=== PATIENT | female | born 1985 | race Caucasian/White ===

== ENCOUNTER 2023-09-11 06:47 | Inpatient (IN) | payer OTHER ==
[2023-09-11] MEDS ORDERED: Misoprostol 200 MCG TAB PR PRN (07:54)
[2023-09-11] MEDS ORDERED: Methylergonovine 0.2 MG/ML VIAL IM PRN (07:54)
[2023-09-11] MEDS ORDERED: Ibuprofen 800 MG TAB PO PRN (07:54)
[2023-09-11] MEDS ORDERED: Ondansetron PF 4 MG/2 ML Vial IVP PRN ×2 (07:54→10:19)
[2023-09-11] MEDS ORDERED: hydrALAZINE 20 MG/ML VIAL SLOW IVP PRN ×2 (07:54→20:38)
[2023-09-11] MEDS ORDERED: Tranexamic Acid 1,000 MG/10 ML VIAL IVP PRN (07:54)
[2023-09-11] MEDS ORDERED: Penicillin G Potassium 5 MILL.UNITS in Sodium Chloride 0.9% 100 ML IVPB SCH (07:54)
[2023-09-11] MEDS ORDERED: Acetaminophen 500 MG TAB PO PRN (07:54)
[2023-09-11] MEDS ORDERED: Carboprost 250 MCG/ML AMP IM PRN (07:54)
[2023-09-11] MEDS ORDERED: Diphenoxylate HCl/Atropine Tablet PO PRN ×2 (07:54)
[2023-09-11] MEDS ORDERED: Lidocaine 1% (PF) 30 ML VIAL SC PRN (07:54)
[2023-09-11] MEDS ORDERED: Oxytocin 30 units/NS 500 ML 500 ML IV SCH ×2 (07:54)
[2023-09-11] MEDS ORDERED: HYDROcodone/Acetaminophen 5/325 mg Tablet PO PRN ×2 (07:54)
[2023-09-11] MEDS ORDERED: Promethazine HCl 25 MG/ML VIAL IM PRN ×2 (07:54→10:19)
[2023-09-11] MEDS ORDERED: fentaNYL 50 mcg/mL 1 mL Vial SLOW IVP PRN (07:54)
[2023-09-11] MEDS ORDERED: Oxytocin 30 units/NS 500 ML 500 ML ONE (08:28)
[2023-09-11] MEDS ORDERED: Penicillin G Potassium 5 MILL.UNITS VIAL ONE (08:30)
[2023-09-11 09:01] LABS: Hematocrit 39.2 % (34.9-44.5); Hemoglobin 12.7 g/dL (12.0-15.5); Mean Corpuscular HGB CONC 32.4 g/dL (32.0-36.0); Mean Corpuscular Hemoglobin 29.7 pg (27.0-33.0); Mean Corpuscular Volume 91.8 fl (81.6-98.3); Mean Platelet Volume 10.3 fl (7.4-10.4); Platelet Count 221 10x3/uL (150-450); RBC Distribution Width 13.8 % (11.5-14.5); Red Blood Cell (RBC) Count 4.27 10x6/uL (3.90-5.03); White Blood Cell (WBC) Count 8.8 10x3/uL (3.5-10.5)
[2023-09-11 09:04] VITALS: BMI 36.0
[2023-09-11] MEDS ORDERED: fentaNYL/Ropivacaine Epidural 100 ML ONE (10:11)
[2023-09-11] MEDS ORDERED: diphenhydrAMINE 50 MG/ML VIAL IVP PRN (10:19)
[2023-09-11] MEDS ORDERED: Naloxone HCl 0.4 mg/ml Vial IVP PRN ×2 (10:19)
[2023-09-11] MEDS ORDERED: Acetaminophen 325 MG TAB PO PRN (10:19)
[2023-09-11] MEDS ORDERED: Moisturizing Cream (Eucerin) 113 GM JAR TOP PRN (10:19)
[2023-09-11] MEDS ORDERED: Lactated Ringer's 500 ML IV PRN (10:19)
[2023-09-11] MEDS ORDERED: ePHEDrine Sulfate 50 MG/10 ML VIAL SLOW IVP PRN (10:19)
[2023-09-11] MEDS ORDERED: Communication Order-Pharmacy FS SCH (10:30)
[2023-09-11] MEDS ORDERED: fentaNYL 2 mcg/Ropivacaine 0.2% Epidural 100 ML CADD EPIDURAL SCH (10:30)
[2023-09-11 11:21] LABS: Syphilis Antibody Nonreactive (Nonreactive); Syphilis Antibody Index 0.04 S/CO (<1.00 Non-Reactive)
[2023-09-11 11:23] LABS: HBSAg Index 0.11 S/CO (0-0.99); Hep B Surf Ag - L&D Non-Reactive S/CO (NonReactive)
[2023-09-11] MEDS: Penicillin G 2.5 MILL.units 2.5 MILL.UNITS in Premix Bag 1 BAG IVPB SCH ×3 (14:08→18:17)
[2023-09-11] MEDS: Lactated Ringer's 1,000 ML IV SCH (14:09)
[2023-09-11] MEDS ORDERED: Calcium Carbonate 500 MG ChewTAB PO SCH (16:00)
[2023-09-11] MEDS ORDERED: fentaNYL 50 mcg/mL 1 mL Vial ONE (19:14)
[2023-09-11] MEDS ORDERED: Misoprostol 200 MCG TAB VAG PRN (20:38)
[2023-09-11] MEDS ORDERED: Lanolin Ointment 7 GM TUBE TOP PRN (20:38)
[2023-09-11] MEDS ORDERED: Benzocaine-Menthol 82.5 ML CAN TOP PRN (20:38)
[2023-09-11] MEDS ORDERED: Boostrix 0.5 ML (Tdap) VIAL (>/=7 yrs of age) IM ONE (20:38)
[2023-09-11] MEDS ORDERED: Milk Of Magnesia 30 ML UDCUP PO PRN (20:38)
[2023-09-11] MEDS ORDERED: Bisacodyl 10 MG SUPP PR PRN (20:38)
[2023-09-11] MEDS ORDERED: traMADol HCl 50 MG TAB PO PRN (20:38)
[2023-09-11] MEDS ORDERED: Preparation H Ointment 28 GM TUBE PR PRN (20:38)
[2023-09-11] MEDS: Ibuprofen 800 MG TAB PO SCH (23:56)
[2023-09-11] MEDS: Docusate 100 MG CAP PO SCH (23:56)
[2023-09-12] MEDS: Ibuprofen 800 MG TAB PO SCH ×3 (05:55→21:31)
[2023-09-12] MEDS: Penicillin G 2.5 MILL.units 2.5 MILL.UNITS in Premix Bag 1 BAG IVPB SCH (07:22)
[2023-09-12] MEDS: Lactated Ringer's 1,000 ML IV SCH (07:22)
[2023-09-12] MEDS ORDERED: Bupivacaine 0.25% HCL 30 ML VIAL ONE (08:00)
[2023-09-12] MEDS ORDERED: Prenatal Vitamin 1 TAB PO SCH (09:00)
[2023-09-12] MEDS: Docusate 100 MG CAP PO SCH ×2 (09:56→21:32)
[2023-09-12] MEDS: Ferrous Sulfate 325 MG TAB PO SCH ×2 (09:56→16:08)
[2023-09-12] MEDS ORDERED: Witch Hazel-Glycerin 1 EACH JAR TOP PRN (14:33)
[2023-09-13] MEDS: Ibuprofen 800 MG TAB PO SCH (05:24)
[2023-09-13 07:58] VITALS: BP 122/56; TEMP 98.1
== END 2023-09-13 11:35 | disposition home or self-care (01) | DRG 807 ==
LOC: CSHLD 06:47 → CSHPED 22:32
PROVIDERS: ADMIT Obstetrics & Gynecology; ATTEND Obstetrics & Gynecology
PROC: 10E0XZZ Delivery of Products of Conception, External Approach (ICD-10-PCS; principal; 2023-09-11)
PROC: 3E0334Z Introduction of Serum, Toxoid and Vaccine into Peripheral Vein, Percutaneous Approach (ICD-10-PCS; 2023-09-11)
PROC: 10S0XZZ Reposition Products of Conception, External Approach (ICD-10-PCS; 2023-09-11)
PROC: 0HQ9XZZ Repair Perineum Skin, External Approach (ICD-10-PCS; 2023-09-11)
DX: O26.893 Other specified pregnancy related conditions, third trimester (principal); Z37.0 Single live birth; Z67.11 Type A blood, Rh negative; Z88.8 Allergy status to other drugs, medicaments and biological substances; Z3A.39 39 weeks gestation of pregnancy; O24.420 Gestational diabetes mellitus in childbirth, diet controlled; O99.824 Streptococcus B carrier state complicating childbirth; O32.1XX0 Maternal care for breech presentation, not applicable or unspecified; O70.0 First degree perineal laceration during delivery
CPT/HCPCS: 36415; 51702; 59412; 85027; 85461; 86780; 86850; 86870; 86900; 86901; 87340; 90384; 96372; J2540; J2590; J3490; J7120; S0020

== ENCOUNTER 2025-10-28 10:15 | Emergency (ER) | payer OTHER ==
[2025-10-28 11:35] LABS: Glucose, Urine (Dipstick) Normal (Negative); Leukocyte Negative (Negative); Protein, Urine (Dipstick) Negative (Neg-Trace); Specific Gravity, Urine 1.005 (1.005-1.030)
[2025-10-28 11:53] LABS: Bacteria/HPF Rare-Few HPF (None Seen); CAUTI Indications for Culture Pregnancy; WBC/HPF 0-3 HPF (0-3)
[2025-10-28 11:55] LABS: Urine Culture Reflex Yes Yes
[2025-10-28 12:19] LABS: #Basophils 0.05 10x3/uL (0.0-0.2); #Eosinophils 0.19 10x3/uL (0.0-0.5); #Monocytes 0.67 10x3/uL (0.0-1.1); #Neutrophils 7.06 10x3/uL (1.5-8.4); %Basophils 0.5 % (0.0-2.0); %Eosinophils 1.9 % (0.0-6.0); %Lymphocytes 18.6 % (18.0-47.0); %Monocytes 6.8 % (0.0-10.0); %Neutrophils 72.0 % (40.0-75.0); Hematocrit 33.8 % (34.9-44.5); Hemoglobin 10.8 g/dL (12.0-15.5); Mean Corpuscular Hemoglobin 24.9 pg (27.0-33.0); Mean Corpuscular Volume 78.1 fL (81.6-98.3); Platelet Count 290 10x3/uL (150-450); Red Blood Cell (RBC) Count 4.33 10x6/uL (3.90-5.03); White Blood Cell (WBC) Count 9.81 10x3/uL (3.5-10.5)
== END 2025-10-28 13:57 | disposition home or self-care (01) ==
LOC: CSHERS 10:15
DX: O20.9 Hemorrhage in early pregnancy, unspecified (principal); O09.521 Supervision of elderly multigravida, first trimester; Z3A.01 Less than 8 weeks gestation of pregnancy
CPT/HCPCS: 36415; 76856; 81001; 84702; 85025; 86900; 86901; 87086; 93976